=== PATIENT | male | born 1970 | race Caucasian/White ===

== ENCOUNTER → 2018-03-23 12:22 | Outpatient (CLI) | payer BC, SELFPAY ==
--- NOTE | 2018-03-23 12:38 | RAD_ITS ---
STUDY: X-RAY - LEFT HAND REASON FOR EXAM: Male, 47 years old. On the anterior index finger. No pain. No trauma. TECHNIQUE: 3 view(s) of the hand. COMPARISON: None. FINDINGS: Normal radiocarpal articulation. Normal distal radioulnar joint. Normal visualized carpal bones. Normal carpal articulations Normal carpometacarpal articulation of the thumb. Normal second through fifth carpometacarpal joints. Normal metacarpi. Normal metacarpophalangeal joint of the thumb. Normal interphalangeal joint of the thumb. Normal proximal and distal phalanges of the thumb. Normal metacarpophalangeal joints of the second through fifth fingers. Normal proximal and distal interphalangeal joints of the second through fifth fingers. Normal phalanges of the second through fifth fingers. The soft tissue structures are unremarkable. RAD/Hand Min 3 Views IMPRESSION: Normal x-ray examination of the hand. Electronically Signed: Yony Galo DO at 17:00 EDT Tel [phone], Service support ,
== END ==
PROVIDERS: Family Provider Internal Medicine; PCP Internal Medicine; Referring Provider Nurse Practitioner; Visit Provider Nurse Practitioner
DX: M79.642 Pain in left hand (principal)
CPT/HCPCS: 73130

== ENCOUNTER → 2019-06-11 14:05 | Outpatient (CLI) | payer SELFPAY ==
--- NOTE | 2019-06-11 14:11 | CT_ITS ---
STUDY: CT CHEST WITHOUT CONTRAST REASON FOR EXAM: Male, 49 years old. SCREENING RADIATION DOSAGE (If Supplied By Facility): CTDIvol = ( 0 ) mGy, DLP = ( 0 ) mGycm TECHNIQUE: Transaxial imaging was performed without the administration of intravenous contrast material. Protocol for cardiac screening. Individualized dose optimization techniques were used for this CT. COMPARISON: None. FINDINGS: Minimal fibrotic changes in the lung bases. Upper lungs and extreme right lung base excluded. There is no demonstrated pleural abnormality. Normal heart and pericardium. Normal mediastinum. Normal hilar regions. Normal unenhanced pulmonary arteries. Normal aorta arch and descending thoracic aorta. Normal osseous structures. There is no demonstrated abnormality of the visualized upper abdomen. IMPRESSION: Normal limited unenhanced CT Chest examination. Electronically Signed: Chris Sosa MD (Brooks) at 17:05 EST , Service support , STUDY: CT CHEST WITHOUT CONTRAST REASON FOR EXAM: Male, 49 years old. SCREENING RADIATION DOSAGE (If Supplied By Facility): CTDIvol = ( 0 ) mGy, DLP = ( 0 ) mGycm TECHNIQUE: Transaxial imaging was performed without the administration of intravenous contrast material. Protocol for cardiac screening. Individualized dose optimization techniques were used for this CT. COMPARISON: None. FINDINGS: Minimal fibrotic changes in the lung bases. Upper lungs and extreme right lung base excluded. There is no demonstrated pleural abnormality. Normal heart and pericardium. Normal mediastinum. Normal hilar regions. Normal unenhanced pulmonary arteries. Normal aorta arch and descending thoracic aorta. Normal osseous structures. There is no demonstrated abnormality of the visualized upper abdomen. CT/Limited Chest CT w/CCTA
[2019-06-11 14:22] VITALS: BP 165/98; PULSE 66; RESP 16; O2SAT 99; BMI 29.5
--- NOTE | 2019-06-14 08:25 | CA.SCORE ---
Calcium Scoring Date of Study:: 06/14/19 Coronary Calcium Scoring: High-resolution Computed Tomographic imaging of the chest was performed on [06/11/2019], with particular attention paid to the coronary arteries. Images from the examination were analyzed for the presence and extent of coronary artery calcification , using coronary calcium quantification software. The patient tolerated the procedure well and there were no complications. The results of the coronary calcification analysis are provided below. - Findings Left Main (LM): 0 Left Anterior Descending (LAD): 0 Left Circumflex (LCX): 0 Right Coronary Artery (RCA): 0 Total Agatston Score: 0 Percentile Rankin Calcium Scoring Interpretation: 0 No identifiable atherosclerotic plaque. Very low cardiovascular disease risk. <5% chance of presence coronary artery disease A Negative Examination 1-10 Minimal Plaque burden. Significant coronary artery disease very unlikely. 11-100 Mild plaque burden. Likely mild or minimal coronary atherosclerosis. 101-400 Moderate plaque burden Moderate non-obstructive coronary artery disease highly likely. Over 400 Extensive plaque burden. High likelihood of at least one significant coronary stenosis (>50% diameter) Calcium Score: 0 Negative Examination - The above suggests no coronary atherosclerotic plaquing. A full evaluation of cardiac risk should include an assessment of all conventional risk factors.
== END ==
PROVIDERS: Family Provider Nurse Practitioner; PCP Nurse Practitioner; Referring Provider Nurse Practitioner; Visit Provider Nurse Practitioner
DX: Z13.6 Encounter for screening for cardiovascular disorders (principal); E78.00 Pure hypercholesterolemia, unspecified
CPT/HCPCS: 75571; 76380

== ENCOUNTER → 2020-12-29 08:12 | Outpatient (CLI) | payer OTHER, SELFPAY ==
[2019-06-11 14:22] VITALS: BMI 29.5
--- NOTE | 2020-12-29 08:15 | CT_ITS ---
STUDY: CT ABDOMEN AND PELVIS WITH CONTRAST REASON FOR EXAM: Male, 50 years old. DIARRHEA. Left lower quadrant pain. 20 pound weight loss in a month. RADIATION DOSAGE (If Supplied By Facility): CTDIvol = ( 15.64 ) mGy, DLP = ( 1272.61 ) mGycm TECHNIQUE: Transaxial images were obtained from the dome of the diaphragm to the symphysis pubis with oral contrast. Oral and amp; IV Readi-CAT and amp; 100mL Isovue-300 was administered. Sagittal and coronal images were reconstructed. Individualized dose optimization techniques were used for this CT. COMPARISON: None. FINDINGS: Mild increased linear markings in the right middle lobe and lingular segment of the left upper lobe suggestive of a mild scarring or atelectasis. The visualized portions of the heart are within normal limits. There is decreased attenuation of the liver consistent with steatosis. Normal gallbladder and extrahepatic biliary system. Normal spleen. Normal pancreas. Normal bilateral adrenal glands. Normal right kidney. Normal left kidney. There is a small hiatal hernia. Normal small intestine. Normal colon. The appendix is visualized and appears normal. There is scattered atherosclerotic calcification of the abdominal aorta, without a demonstrated aneurysm. Normal inferior vena cava. Normal retroperitoneum. The bladder is almost empty at the time of examination. There are prostatic calcifications. There is a small umbilical hernia containing fat. There are mild degenerative changes of the visualized lumbar spine. CT/Abdomen/Pelvis WITH Contrast IMPRESSION: Fatty infiltration of the liver. Electronically Signed: Walter Chavis MD at 9:12 EDT , Service support ,
== END ==
PROVIDERS: PCP Nurse Practitioner; Referring Provider Internal Medicine; Visit Provider Internal Medicine
DX: R19.7 Diarrhea, unspecified (principal)
CPT/HCPCS: 74177; Q9967

== ENCOUNTER → 2021-01-12 15:56 | Outpatient (CLI) | payer OTHER, SELFPAY ==
[2019-06-11 14:22] VITALS: BMI 29.5
[2021-01-12 17:53] LABS: CRP < 2.90 mg/L (0.0-3.0)
[2021-01-15 16:09] LABS: Endomysial Antibody IgA Negative (Negative)
[2021-01-15 16:47] LABS: Immunoglobulin A 216 mg/dL (90-386); t-Transglutaminase IgA <2 U/mL (0-3)
== END ==
PROVIDERS: PCP Nurse Practitioner; Referring Provider Internal Medicine Gastroenterology; Visit Provider Internal Medicine Gastroenterology
DX: R19.7 Diarrhea, unspecified (principal)
CPT/HCPCS: 36415; 82784; 83516; 86140; 86255

== ENCOUNTER → 2021-01-16 | Outpatient (CLI) | payer OTHER, SELFPAY ==
[2019-06-11 14:22] VITALS: BMI 29.5
--- NOTE | 2021-01-16 12:41 | COLBX_PTH ---
PATIENT: ANGELIKA MATHIS LOC: [facility] U#:[id number] AGE/SX: 50/M ROOM: RE01/16/[address]: Dr. Chilango Sebastian MD : 1970 BED: DIS: 01/16/2021 SPEC #: [id number] RECD: 01/17/21 09:38 STATUS: RAISSA MICHAUD #: [id number] JACE: 01/16/21 12:[address]: Chilango Sebastian DEPT: SURGICAL PATHOLOGY RECD BY: Micaela Jones ENTERED: 01/17/21 09:39 SP TYPE: COLON BX OTHR DR: Lilly Villarreal, [facility] Tissues: A - Right colon B - Ileum, NOS Procedures: Surgery Specimen Level IV HEADER OPERATION: Colonoscopy with biopsies PRE-OP DIAGNOSIS: Diarrhea, weight loss TISSUE SUBMITTED: A ? Biopsy right and left colon, rule out microscopic colitis, B ? Biopsy terminal ileum, rule out Crohn?s MICROSCOPIC DIAGNOSIS A. Right and left colon, biopsy: Fragments of colonic mucosa, no pathologic diagnosis. B. Terminal ileum, biopsy: Fragments of small intestinal mucosa, no pathologic diagnosis. MARTIN:john 01/18/2021 MICROSCOPIC DESCRIPTION Slides are reviewed. GROSS DESCRIPTION A - Received in fixative is one container labeled with the patient's name and designated biopsy right and left colon. The specimen consists of multiple irregular fragments of light watson soft tissue that in aggregate measure 1.7 x 0.5 x 0.1 cm. The specimen is totally submitted in one cassette. B - Received in fixative is one container labeled with the patient's name and designated biopsy terminal ileum. The specimen consists of multiple irregular fragments of light watson soft tissue that in aggregate measure 1 x 0.4 x 0.1 cm. The specimen is totally submitted in one cassette. / MARTIN:john 01/17/21 TC:4 CPT: 29676 x2
== END | disposition home or self-care (01) ==
LOC: LABSPEC 15:58
PROVIDERS: PCP Nurse Practitioner; Referring Provider Internal Medicine Gastroenterology; Visit Provider Internal Medicine Gastroenterology
DX: R19.7 Diarrhea, unspecified (principal); R63.4 Abnormal weight loss
CPT/HCPCS: 88305

== ENCOUNTER → 2021-01-30 09:20 | Outpatient (CLI) | payer OTHER, SELFPAY ==
[2019-06-11 14:22] VITALS: BMI 29.5
[2021-01-31 20:28] LABS: Fats, Neutral Normal (.); Fats, Total Normal (.)
== END ==
PROVIDERS: PCP Nurse Practitioner; Referring Provider Internal Medicine Gastroenterology; Visit Provider Internal Medicine Gastroenterology
DX: R19.7 Diarrhea, unspecified (principal)
CPT/HCPCS: 82705

== ENCOUNTER → 2022-06-14 | Outpatient (CLI) | payer OTHER, SELFPAY ==
[2022-06-14 10:57] LABS: Creatinine, Serum 1.11 mg/dL (0.70-1.30); EST Glomerular Filtration Rate 73 mL/min (>60); Est Glom Filt Rate - Afr Amer 89 mL/min (>60)
== END | disposition home or self-care (01) ==
LOC: MTLAB 09:18
PROVIDERS: PCP Nurse Practitioner Family; Referring Provider Student in an Organized Health Care Education/Training Program; Visit Provider Student in an Organized Health Care Education/Training Program
DX: N28.89 Other specified disorders of kidney and ureter (principal)
CPT/HCPCS: 36415; 82565

== ENCOUNTER → 2022-06-19 | Outpatient (CLI) | payer OTHER, SELFPAY ==
--- NOTE | 2022-06-19 10:11 | MRI_ITS ---
STUDY: MRI RIGHT HAND REASON FOR EXAM: Male, 52 years old. SWELLING, MASS, LUMP MID HAND TECHNIQUE: Standardized fat and water weighted pulse sequences were obtained in all 3 orthogonal planes. COMPARISON: Right hand x-ray dated March. FINDINGS: FIRST DIGIT: Normal visualized first metacarpus. Normal metacarpophalangeal joint. Normal interphalangeal joint. Normal proximal, and distal phalanges. Normal flexor and extensor tendons. There is no soft tissue abnormality. SECOND DIGIT: Normal visualized second metacarpus. Normal metacarpophalangeal joint. Normal proximal and distal interphalangeal joints. Normal proximal, middle and distal phalanges. Normal flexor and extensor tendons. There is no soft tissue abnormality. THIRD DIGIT: There is a 1.41 x 0.61 x 1.70 cm peripherally enhancing ovoid/primarily intermediate signal nodule in the subcutaneous fat directly beneath the flexor retinaculum beneath the third metacarpal head, consistent with a retinacular fibroma. A second 0.86 x 0.63 cm fibroma is present in the subcutaneous tissues on the volar surface and head and neck region of the proximal phalanx of the third finger that arises from the flexor tendon, consistent with a fibroma of the flexor tendon sheath. The tendon is mildly to moderately thickened due to the fibroma at this level. The remaining aspects of the flexor tendon are normal. No aggressive features are present. No infiltration of the mass into the surrounding structures is seen. No edema is present in the surrounding soft tissues. No additional lesions are seen in the right hand on the current study. There is no marrow edema or other bony lesions. Normal visualized third metacarpus. Normal metacarpophalangeal joint. Normal proximal and distal interphalangeal joints. Normal proximal, middle and distal phalanges. Normal flexor and extensor tendons. FOURTH DIGIT: Normal visualized fourth metacarpus. Normal metacarpophalangeal joint. Normal proximal and distal interphalangeal joints. Normal proximal, middle and distal phalanges. Normal flexor and extensor tendons. There is no soft tissue abnormality. FIFTH DIGIT: Normal visualized fifth metacarpus. Normal metacarpophalangeal joint. Normal proximal and distal interphalangeal joints. Normal proximal, middle and distal phalanges. Normal flexor and extensor tendons. There is no soft tissue abnormality. Normal visualized thenar and hypothenar muscles. Normal lumbricalis and interosseous muscles. There are no solid, cystic or lipomatous masses. 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 1. There is a 1.41 x 0.61 x 1.70 cm peripherally enhancing ovoid/primarily intermediate signal nodule in the subcutaneous fat directly beneath the flexor retinaculum beneath the third metacarpal head, consistent with a retinacular fibroma. 2. A second 0.86 x 0.63 cm fibroma is present in the subcutaneous tissues on the volar surface and head and neck region of the proximal phalanx of the third finger that arises from the flexor tendon, consistent with a fibroma of the flexor tendon sheath. The tendon is mildly to moderately thickened due to the fibroma at this level. 3. The remaining aspects of the flexor tendon are normal. No aggressive features are present. 4. No infiltration of the mass into the surrounding structures is seen. 5. No edema is present in the surrounding soft tissues. 6. No additional lesions are seen in the right hand on the current study. There is no marrow edema or other bony lesions. Electronically Signed: Mainor Grove MD at 15:58 EST ,
== END | disposition home or self-care (01) ==
LOC: MRI 10:06
PROVIDERS: PCP Nurse Practitioner Family; Referring Provider Student in an Organized Health Care Education/Training Program; Visit Provider Student in an Organized Health Care Education/Training Program
DX: R22.31 Localized swelling, mass and lump, right upper limb (principal)
CPT/HCPCS: 73223; A9575

== ENCOUNTER → 2023-05-27 | Outpatient (CLI) | payer OTHER, SELFPAY ==
--- NOTE | 2023-05-27 09:42 | EKG12_ITS ---
Test Reason : PRE-OP Blood Pressure : / mmHG Vent. Rate : 091 BPM Atrial Rate : 091 BPM P-R Int : 130 ms QRS Dur : 090 ms QT Int : 372 ms P-R-T Axes : 060 017 032 degrees QTc Int : 457 ms Normal sinus rhythm Normal ECG Confirmed by ANGEL GARCIA, BERTHA ([id number]), editor greeting card MICA CHUN ([id number]) on 06/02/2023 7:00:36 AM Referred By: Ian Dyson Confirmed By:ROCHELLE ORTIZ MD
== END | disposition home or self-care (01) ==
PROVIDERS: PCP Nurse Practitioner Family; Referring Provider Student in an Organized Health Care Education/Training Program; Visit Provider Student in an Organized Health Care Education/Training Program
DX: Z01.818 Encounter for other preprocedural examination (principal); Z01.810 Encounter for preprocedural cardiovascular examination
CPT/HCPCS: 93005

== ENCOUNTER 2023-08-21 09:30 | Outpatient (RCR) | payer OTHER, SELFPAY ==
--- NOTE | 2023-07-15 12:35 | HP.OTEVAL_ITS ---
Patient's Visit Information Visit Information Visit Information: ANGELIKA MATHIS is a 53 year old M, referred to Occupational Therapy by Dr. Ian Dyson, DO, with a diagnosis of Lat.eip/lesion ulnar nerve. Date of Evaluation: 07/14/23 Occupational Therapist: DUANE Ba/French, CHT Subjective Subjective: This 53 year old male was seen for OT eval with dx of right lateral epi. pt states he had elbow pain for about two-three years- pt states after injections to right elbow was not successful he decided to have sx. during his sx did release soft tissue at base of MF and At DIP crease (fasciotomy) DOS 2022 pt was in soft sx splint on for 16 days. pt states he did Physical therapy when cast was a removed- did PT at [facility] - states mostly for elbow but very little done to his finger. went to see and he rec.d him to come here. pt state he would like is hand to return to his PLOF full ROM and return his strength. Pain right MF: Current Pain Intensity: 3 Pain Intensity Range: 3 and 6 ROM Elbow: right 0/140 left WNL Wrist: right 45/55 left 65/60 MP: right MF-35/85 left -30/105 PIP: right MF-30/30 left +15/95 DIP: right MF -10/20 left +15/60 ROM Comments: based on measurements and visual observation pt demo with swan- neck deformities of bilateral MFs currently more on unaffected vs affected slight MF swelling Strength Ad Compositor: right NT left 90# Lateral Pinch: Right NT left 16# Tripod Pinch: right NT left 16# Strength Comments: will test right veterinary dentist/pinch at later date Sensation Sensation Comments: denies sensation loss Quick DASH-Disab of Arm,Shoulder& Hand Quick DASH Score: 51.6650 Goals Goal:Daily scar massage when approriate: Yes Goal:ROM equal to unaffected hand: Yes Goal:Ad Compositor/Pinch strength at least 75% of unaffected hand: Yes Goal:No pain with affected hand use: Yes Goal:Full use of affected hand in daily activities including work: Yes Goal:Decrease scar hypersensitivity: Yes Rehabilitation General Assessment: Pt arrives s/p 4 weeks and 5 days s/p from right lateral epi release/fasciotomy/ ulnar nerve. pt demo good recovery from his lateral eip sx but has concerns with the ability to move his hand. pt demo with limited ability to form a composite fist with right hand following recent sx. Pt has min. swelling in right MF. pt demo with hypertrophic scar palm of hand MF incision feels good ..Due to healing structures pt is unable to perform his ADLS at his PLOF. Pt would benefit from skilled OT services 2x week for next 6-8 weeks. Today therapist ed. pt on edema control arvind. with use of elastic stockinette and Co-band, ed. on AROM/light blocking for DIP and PIP and armin tape MF to IF to assist in movement patterns and scar mtg. pt demo un derstanding of ex and agrees to POC. Rehabilitation Potential: Good Anticipated Interventions Anticipated Interventions: A/AAROM/PROM, Strengthening, Edema Control, Scar Care, Triggerpoint Release, Desensitization, Sensory Retraining, Modalities, Orthoses, Joint Protection/Energy Conservation, Ergonomic Education, Fine Motor Coord/Billy, Education re Diagnosis and Home Program Other Interventions: elastomer Visit Plan Frequency: 1-2x /Week Duration: 6 Weeks General Plan: scar ROM Tendon blocking place and hold TEXT: Thank you for the opportunity to evaluate your patient. For Medicare and Medicare HMO plans, please review the plan of care and approve it. It will need to be FAXED BACK to us at [phone] for Medicare purposes. Please let me know if there are questions or concerns regarding this plan of care. Physician Signature: Date:
--- NOTE | 2023-07-15 12:43 | HP.OTEVAL_ITS ---
Patient's Visit Information Visit Information Visit Information: ANGELIKA MATHIS is a 53 year old M, referred to Occupational Therapy by Dr. Ian Dyson, DO, with a diagnosis of Lat.eip/lesion ulnar nerve. Date of Evaluation: 07/14/23 Occupational Therapist: DUANE Ba/French, CHT Subjective Subjective: This 53 year old male was seen for OT eval with dx of right lateral epi. pt states he had elbow pain for about two-three years- pt states after injections to right elbow was not successful he decided to have sx. during his sx did release soft tissue at base of MF and At DIP crease (fasciotomy) DOS 2022 pt was in soft sx splint on for 16 days. pt states he did Physical therapy when cast was a removed- did PT at [facility] - states mostly for elbow but very little done to his finger. went to see and he rec.d him to come here. pt state he would like is hand to return to his PLOF full ROM and return his strength. Pain right MF: Current Pain Intensity: 3 Pain Intensity Range: 3 and 6 ROM Elbow: right 0/140 left WNL Wrist: right 45/55 left 65/60 MP: right MF-35/85 left -30/105 PIP: right MF-30/30 left +15/95 DIP: right MF -10/20 left +15/60 ROM Comments: based on measurements and visual observation pt demo with swan- neck deformities of bilateral MFs currently more on unaffected vs affected slight MF swelling Strength Electrical Prospector: right NT left 90# Lateral Pinch: Right NT left 16# Tripod Pinch: right NT left 16# Strength Comments: will test right tyre retreader/pinch at later date Sensation Sensation Comments: denies sensation loss Quick DASH-Disab of Arm,Shoulder& Hand Quick DASH Score: 51.6650 Goals Goal:Daily scar massage when approriate: Yes Goal:ROM equal to unaffected hand: Yes Goal:Electrical Prospector/Pinch strength at least 75% of unaffected hand: Yes Goal:No pain with affected hand use: Yes Goal:Full use of affected hand in daily activities including work: Yes Goal:Decrease scar hypersensitivity: Yes Rehabilitation General Assessment: Pt arrives s/p 4 weeks and 5 days s/p from right lateral epi release/fasciotomy/ ulnar nerve. pt demo good recovery from his lateral eip sx but has concerns with the ability to move his hand. pt demo with limited ability to form a composite fist with right hand following recent sx. Pt has min. swelling in right MF. pt demo with hypertrophic scar palm of hand MF incision feels good ..Due to healing structures pt is unable to perform his ADLS at his PLOF. Pt would benefit from skilled OT services 2x week for next 6-8 weeks. Today therapist ed. pt on edema control arvind. with use of elastic stockinette and Co-band, ed. on AROM/light blocking for DIP and PIP and armin tape MF to IF to assist in movement patterns and scar mtg. pt demo un derstanding of ex and agrees to POC. Rehabilitation Potential: Good Anticipated Interventions Anticipated Interventions: A/AAROM/PROM, Strengthening, Edema Control, Scar Care, Triggerpoint Release, Desensitization, Sensory Retraining, Modalities, Orthoses, Joint Protection/Energy Conservation, Ergonomic Education, Fine Motor Coord/Billy, Education re Diagnosis and Home Program Other Interventions: elastomer Visit Plan Frequency: 1-2x /Week Duration: 6 Weeks General Plan: scar ROM armin tape to IF Tendon blocking place and hold as pt gains ROM and pain decrease will initiate strengthening when able and increase as tolerated. TEXT: Thank you for the opportunity to evaluate your patient. For Medicare and Medicare HMO plans, please review the plan of care and approve it. It will need to be FAXED BACK to us at [phone] for Medicare purposes. Please let me know if there are questions or concerns regarding this plan of care. Physician Signature: Date:
--- NOTE | 2023-08-21 09:54 | HP.OTREVAL ---
Re-Evaluation Intro: Dr. Ian Dyson, DO, It has been my pleasure to treat ANGELIKA MATHIS over the last 8 visits for Lat.eip/lesion ulnar nerve. Please see the progress note below for an update on the occupational therapy plan of care! 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 Objective Objective/Function: right power station operator strength 50# right MF PIP at 75* active flexion PROM 80* pt continues to have pain with AROM and PROM pt has been ed. 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 ROM pain or strength Goals Goals Patient Goals: Regain Mobility, Decrease Pain, Return to Work, Decrease Swelling/Stiffness, Improve Fine Motor Skills, Use Hand/Wrist/Arm Normally Again, Increase ROM and Resume Former Household Responsibilities (Cooking,Cleaning,Yard, etc.) Goal:Daily scar massage when approriate: Yes Goal:ROM equal to unaffected hand: Yes Goal:Physician Surgeon/Pinch strength at least 75% of unaffected hand: Yes Goal:No pain with affected hand use: Yes Goal:Full use of affected hand in daily activities including work: Yes Goal:Decrease scar hypersensitivity: Yes Anticipated Interventions Anticipated Interventions Anticipated Interventions: A/AAROM/PROM, Strengthening, Edema Control, Scar Care, Triggerpoint Release, Desensitization, Sensory Retraining, Modalities, Orthoses, Joint Protection/Energy Conservation, Ergonomic Education, Fine Motor Coord/Billy, Education re Diagnosis and Home Program Other Interventions: elastomer Re-Evaluation Ending Re-evaluation ending: Please do not hesitate to contact me at [phone] by phone or if you have questions or concerns regarding this new plan of care! Sincerely, DUANE Ba/French, CHT
== END 2023-08-21 19:00 | disposition home or self-care (01) ==
LOC: OT 09:30
PROVIDERS: PCP Nurse Practitioner Family; Referring Provider Student in an Organized Health Care Education/Training Program; Visit Provider Student in an Organized Health Care Education/Training Program
DX: G56.21 Lesion of ulnar nerve, right upper limb (principal)
CPT/HCPCS: 97035; 97110; 97140; 97166; 97530

== ENCOUNTER → 2024-07-30 | Outpatient (CLI) | payer OTHER, SELFPAY ==
--- NOTE | 2024-07-30 10:53 | MRI_ITS ---
PROCEDURE: Noncontrast MRI of the lumbar spine. REASON FOR EXAM: Lumbar radiculopathy. TECHNIQUE: Multiplanar, multisequence MRI images of the lumbar spine were obtained without IV contrast. Increasing low back pain. Remote injury 35 years ago. No history of prior lumbar spine surgery. CONTRAST: COMPARISON: None. FINDINGS: The study assumes a presence of 5 lumbar type, [id number] vertebral bodies. The lumbar vertebral bodies are normal in height, alignment, and marrow signal. No acute fracture, focal subluxation, or abnormal marrow replacement process. Moderate reactive endplate changes at the L5-S1 level. The conus terminates at L1-2. The included lower spinal cord and lower thoracic intervertebral disc spaces are unremarkable. Included retroperitoneal and paraspinal soft tissues show no specific abnormality. L1-2: No focal disc herniation, significant central spinal canal, or neural foraminal narrowing. Mild degenerative facet changes. L2-3: No focal disc herniation or significant central spinal canal narrowing. No significant left neural foraminal narrowing. Mild right neural foraminal narrowing. Mild degenerative facet changes. L3-4: Minimal disc bulge. No focal disc herniation or significant central spinal canal narrowing. Mild bilateral neural foraminal narrowing. Mild degenerative facet changes. L4-5: Significant loss of disc height. Mild disc bulge slightly indents the ventral thecal sac. No large focal disc herniation or significant central spinal canal narrowing. Mild bilateral neural foraminal narrowing. Moderate degenerative facet changes. L5-S1: There is loss of disc height and diffuse disc bulge, which flattens the ventral thecal sac. No focal disc herniation or significant central spinal canal narrowing. Mild right and moderate left neural foraminal narrowing. Mild degenerative facet changes. Sacrum: Visualized upper sacrum and SI joints are unremarkable. MRI/Spine Lumbar (Routine) IMPRESSION: 1. No acute bony abnormality of the lumbar spine. 2. Mild multilevel degenerative disc and facet disease in the lumbar spine with , without focal disc herniation or significant central spinal canal narrowing. 3. Multilevel neural foraminal narrowing as described level by level above, to a moderate degree on the right at the L5-S1 level. Suggest correlation with patient's symptoms. [id number] diffuse degenera tive facet changes are present. Reading Location: [facility]
== END | disposition home or self-care (01) ==
PROVIDERS: PCP Nurse Practitioner Family; Referring Provider Orthopaedic Surgery Orthopaedic Surgery of the Spine; Visit Provider Orthopaedic Surgery Orthopaedic Surgery of the Spine
DX: M54.16 Radiculopathy, lumbar region (principal)
CPT/HCPCS: 72148

== ENCOUNTER 2024-10-28 11:40 | Outpatient (RCR) | payer OTHER, SELFPAY ==
--- NOTE | 2024-10-29 09:34 | HP.OTEVAL_ITS ---
Patient's Visit Information Visit Information Visit Information: ANGELIKA MATHIS is a 54 year old M, referred to Occupational Therapy by Dr. Ben Siddiqui MD, with a diagnosis of Dupuytren's contracture.. Date of Evaluation: 10/28/24 Occupational Therapist: Serenity Calero, DUANE/French, CHT Subjective Subjective: This 54 year old male was seen for OT eval with dx of Dupuytren's contracture. pt underwent xiaflex injection followed with manipulation today. pt arrives for custom orthosis to wear for 12 weeks at night. pt states he is feeling good as his hand is still numb from the manipulation. Pain left hand: Current Pain Intensity: 2 Pain Intensity Range: 0 and 2 ROM MP: left IF -15/70 PIP: left IF -45/90 DIP: left IF 0/55 Quick DASH-Disab of Arm,Shoulder& Hand Quick DASH Score: 61.6650 Goals Goal:[employer]/Pinch strength at least 75% of unaffected hand: Yes Goal:No pain with affected hand use: Yes Goal:Full use of affected hand in daily activities including work: Yes Other Goal: improve ROM of IF to decrease risk of further contractor Rehabilitation General Assessment: pt arrives following manipulation in need of skilled OT services 2-3 visits following Dupuytren's manipulation. Pt in need of custom orthosis to provide support at night for 12 weeks to decrease risk of contractures. Therapist justino. custom orthosis to pts limits at this time- advised pt to return for adj. for pts continues gains and progress. Pt demo demo understanding and agree to POC. Rehabilitation Potential: Good Anticipated Interventions Anticipated Interventions: A/AAROM/PROM, Orthoses, Education re Diagnosis and Home Program Visit Plan TEXT: Thank you for the opportunity to evaluate your patient. For Medicare and Medicare HMO plans, please review the plan of care and approve it. It will need to be FAXED BACK to us at [phone] for Medicare purposes. Please let me know if there are questions or concerns regarding this plan of care. Physician Signature: Date:
--- NOTE | 2025-02-17 09:53 | HP.OT.NRP ---
Patient Information Patient Information: ANGELIKA MATHIS was seen in my office for initial evaluation on 10/28/24. The following Plan of Care was established for this patient: Anticipated Interventions Anticipated Interventions: A/AAROM/PROM, Orthoses, Education re Diagnosis and Home Program Last Seen Last Seen: This patient was last seen in our office 10/28/24. Pertinent comments regarding their Occupational therapy will appear below: No further apts have been scheduled. Due to time lapse in service pt is d/c. At this point I will be discontinuing this patient from occupational therapy. I would be happy to see this patient again in the future if found appropriate by the physician. Thank you! Serenity Calero, OTR/L, CHT
== END 2024-10-28 19:00 | disposition home or self-care (01) ==
LOC: OT 11:40
PROVIDERS: PCP Nurse Practitioner Family; Referring Provider Surgery Plastic and Reconstructive Surgery; Visit Provider Surgery Plastic and Reconstructive Surgery
DX: M72.0 Palmar fascial fibromatosis [Dupuytren] (principal)
CPT/HCPCS: 97166